=== PATIENT | male | born 1960 | race Caucasian/White ===

== ENCOUNTER 2020-02-25 08:46 | Outpatient (CLI) | payer OTHER, SELFPAY ==
--- NOTE | 2020-02-25 10:45 | NEURO_ITS ---
Impression: # Known diabetic complains of increasing numbness and weakness. 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 # Significant neurogenic changes distally more than proximally on the needle/EMG exam. 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 Nerve Conduction Studies Anti Sensory Summary Table Stim Site NR Peak (ms) P-T Amp (?V) Site1 Site2 Delta-P (ms) Dist (cm) Manuel (m/s) Left Median Anti Sensory (2-3nd Digit) Wrist 4.3 13.9 Wrist 2-3nd Digit 4.3 14.0 33 Wrist 4.6 5.0 Wrist 2-3nd Digit 4.3 14.0 33 Right Median Anti Sensory (2-3nd Digit) Wrist 5.3 11.3 Wrist 2-3nd Digit 5.3 14.0 26 Wrist 6.0 6.7 Wrist 2-3nd Digit 5.3 14.0 26 Left Radial Anti Sensory (Base 1st Digit) Wrist 4.2 2.5 Wrist Base 1st Digit 4.2 0.0 Right Radial Anti Sensory (Base 1st Digit) Wrist 2.9 7.2 Wrist Base 1st Digit 2.9 0.0 Left Sup Fibular Anti Sensory (Ant Lat Mall) 14 cm 4.4 29.7 14 cm Ant Lat Mall 4.4 16.0 36 Right Sup Fibular Anti Sensory (Ant Lat Mall) 14 cm 4.3 29.7 14 cm Ant Lat Mall 4.3 16.0 37 Left Sural Anti Sensory (Lat Mall) Calf 5.2 2.8 Calf Lat Mall 5.2 16.0 31 Right Sural Anti Sensory (Lat Mall) Calf 4.7 4.5 Calf Lat Mall 4.7 16.0 34 Left Ulnar Anti Sensory (5th Digit) NO RESPONSE Wrist NR Wrist 5th Digit 14.0 Right Ulnar Anti Sensory (5th Digit) Wrist 3.4 9.1 Wrist 5th Digit 3.4 14.0 41 Motor Summary Table Stim Site NR Onset (ms) O-P Amp (mV) Site1 Site2 Delta-0 (ms) Dist (cm) Manuel (m/s) Left Median Motor (Abd Poll Brev) Wrist 4.4 2.9 Elbow Wrist 6.5 31.0 48 Elbow 10.9 2.3 Right Median Motor (Abd Poll Brev) Wrist 6.3 1.6 Elbow Wrist 7.0 30.0 43 Elbow 13.3 1.8 Left Peroneal Motor (Vastus Med) NO RESPONSE Ankle NR Popit NR Right Peroneal Motor (Vastus Med) NO RESPONSE Ankle NR Popit Ankle 0.0 Popit NR Left Tibial Motor (Abd Beltran Brev) Ankle 5.3 0.3 Knee Ankle 13.1 45.0 34 Knee 18.4 0.9 Right Tibial Motor (Abd Beltran Brev) Ankle 6.6 0.2 Knee Ankle 13.9 43.0 31 Knee 20.5 0.3 Left Ulnar Motor (Abd Dig Minimi) NO RESPONSE Wrist NR A Elbow NR Right Ulnar Motor (Abd Dig Minimi) Wrist 3.8 5.8 A Elbow Wrist 7.0 32.0 46 A Elbow 10.8 3.8 F Wave Studies NR F-Lat (ms) L-R F-Lat (ms) Left Median (Mrkrs) (Abd Poll Brev) 34.22 3.73 Right Median (Mrkrs) (Abd Poll Brev) 37.95 3.73 Left Peroneal (Mrkrs) (EDB) NO RESPONSE NR Right Peroneal (Mrkrs) (EDB) NO RESPONSE NR Left Tibial (Mrkrs) (Abd Hallucis) 70.31 6.30 Right Tibial (Mrkrs) (Abd Hallucis) 76.61 6.30 Left Ulnar (Mrkrs) (Abd Dig Min) 37.25 0.88 Right Ulnar (Mrkrs) (Abd Dig Min) 38.13 0.88 EMG Side Muscle Nerve Root Ins Act Fibs Amp Dur Recrt Comment Right 1stDorInt Ulnar C8-T1 Nml Nml Nml >12ms Reduced Right Ext Indicis Radial (Post Int) C7-8 Nml Nml Nml >12ms Reduced Right Ext Digitorum Radial (Post Int) C7-8 Nml Nml Nml >12ms Reduced Right BrachioRad Radial C5-6 Nml Nml Nml >12ms Reduced Right PronatorTeres M
== END 2020-02-25 08:47 | disposition home or self-care (01) ==
PROVIDERS: PCP Family Medicine; Visit Provider Psychiatry & Neurology Neurology
DX: E13.40 Other specified diabetes mellitus with diabetic neuropathy, unspecified (principal); R94.131 Abnormal electromyogram [EMG]
CPT/HCPCS: 95886; 95913